=== PATIENT | male | born 1990 | race Hispanic/Latino ===

== ENCOUNTER 2024-12-09 13:34 | Emergency (ER) | payer SELFPAY, OTHER ==
[2024-12-09] MEDS ORDERED: Acetaminophen 500 MG TAB ONE (16:42)
[2024-12-09] MEDS ORDERED: Cyclobenzaprine 10 MG TAB ONE (16:42)
== END 2024-12-09 17:16 | disposition home or self-care (01) ==
LOC: ERS 13:34
DX: M54.2 Cervicalgia (principal); V49.9XXA Car occupant (driver) (passenger) injured in unspecified traffic accident, initial encounter; Y93.89 Activity, other specified
CPT/HCPCS: 72040; 72072; 99284

== ENCOUNTER 2025-07-18 01:40 | Emergency (ER) | payer OTHER, SELFPAY ==
[2025-07-18 03:32] LABS: ALT (SGPT) 28 U/L (Less than 45); AST (SGOT) 27 U/L (11-34); Albumin 3.9 g/dL (3.1-4.5); Alkaline Phosphatase 69 U/L (40-110); Anion Gap 17 mmol/L (10-20); BUN (Urea Nitrogen) 10 mg/dL (8.9-20.6); Bilirubin, Total 0.5 mg/dL (0.3-1.2); CK (CPK) 129 U/L (30-200); Calc. Creatinine Clearance 0 mL/min (70-130); Calcium 9.0 mg/dL (7.8-10.44); Carbon Dioxide 23 mmol/L (22-29); Chloride 102 mmol/L (98-107); Globulin 4.5 g/dL (2.4-3.5); Glucose 131 mg/dL (70-105); Lipase 16 U/L (8-78); Magnesium 2.3 mg/dL (1.6-2.6); Potassium 3.8 mmol/L (3.5-5.1); Sodium 138 mmol/L (136-145)
== END 2025-07-18 04:35 ==
LOC: ERS 01:40
DX: R55 Syncope and collapse (principal); F18.10 Inhalant abuse, uncomplicated; I10 Essential (primary) hypertension
CPT/HCPCS: 70450; 71045; 72125; 80053; 82550; 83690; 83735; 84484; 93005; 96360